=== PATIENT | female | born 1940 | race Caucasian/White ===

== ENCOUNTER 2017-03-22 16:14 | Emergency (ER) | payer MEDICARE, BC ==
[2017-03-22 18:03] VITALS: BP 149/88
== END 2017-03-22 18:26 | disposition left against medical advice (07) ==
LOC: DL.ED 16:14
DX: Z53.21 Procedure and treatment not carried out due to patient leaving prior to being seen by health care provider (principal)

== ENCOUNTER 2017-03-23 10:21 | Emergency (ER) | payer MEDICARE, BC ==
[2017-03-23] MEDS ORDERED: Sodium Chloride 0.9% 10 ML Syringe FLUSH PRN (12:23)
[2017-03-23] MEDS ORDERED: Sodium Chloride 0.9% 1,000 ML IV ONE (12:58)
[2017-03-23 13:10] LABS: ANION GAP 17.5; CHLORIDE,CL 98 mmol/L (101-111); SODIUM,NA 138 mmol/L (135-145)
[2017-03-23 13:19] VITALS: BP 128/70
--- NOTE | 2017-03-23 13:24 | EDM.PDOC ---
ED HPI GENERAL MEDICAL PROBLEM - General Chief Complaint: Gastrointestinal Problem Stated Complaint: THROWING UP FLU Time Seen by Provider: 03/23/17 12:15 Source of Information: Reports: Patient, RN, RN Notes Reviewed History Limitations: Reports: No Limitations - History of Present Illness INITIAL COMMENTS - FREE TEXT/NARRATIVE: Patient presents to ER with complaint of nausea, vomiting and diarrhea which began 2 weeks ago. She denies any pain, fever or chills.She has decreased ambition and appetite. She has no pain, fever or chills. Duration: Getting Worse Location: Reports: Abdomen Quality: Reports: Ache Severity: Moderate Improves with: Reports: None Worsens with: Reports: None Associated Symptoms: Reports: No Other Symptoms - Related Data Allergies Allergy/AdvReac Type Severity Reaction Status Date / Time amlodipine Allergy Cough Verified 03/23/17 10:56 celecoxib Allergy Cannot Verified 03/23/17 10:56 Remember Penicillins Allergy Cannot Verified 03/23/17 10:56 Remember Gsirssu-Six-Eqa Reductase Allergy Cannot Verified 03/23/17 10:56 Inhibitor Remember Sulfa (Sulfonamide Allergy Vomiting Verified 03/23/17 10:56 Antibiotics) Home Meds: Home Meds Aspirin [Halfprin] 81 mg PO DAILY 09/17/15 [History] Cholecalciferol (Vitamin D3) [Vitamin D] 5,000 units PO DAILY 09/17/15 [History] ClonazePAM [KlonoPIN] 0.5 mg PO DAILY 09/17/15 [History] DULoxetine [Cymbalta] 120 mg PO DAILY 09/17/15 [History] Fluticasone Propionate [Flonase] 1 spray NASBOTH DAILY 09/17/15 [History] Furosemide [Lasix] 20 mg PO DAILY 09/17/15 [History] Insulin Aspart [Novolog Flexpen] 6 - 10 units SUBCUT TID 09/17/15 [History] Insulin Detemir [Levemir] 50 mg PO DAILY 09/17/15 [History] LORazepam 1 mg PO Q6H PRN 09/17/15 [History] Liraglutide [Victoza 3-Clifton] 18 mg SUBCUT DAILY 09/17/15 [History] Losartan Potassium 100 mg PO DAILY 09/17/15 [History] Oxybutynin [Oxybutynin ER] 5 mg PO DAILY 09/17/15 [History] busPIRone [Buspar] 15 mg PO BID 09/17/15 [History] metFORMIN HCl [Metformin HCl] 1,000 mg PO BID 09/17/15 [History] Past Medical History HEENT History: Reports: Hard of Hearing, Sinusitis, Other (See Below) Other HEENT History: tinnitus Cardiovascular History: Reports: High Cholesterol, Hypertension Gastrointestinal History: Reports: PUD Genitourinary History: Reports: Other (See Below) Other Genitourinary History: irritable bladder [employer] History: Reports: Other (See Below) Other OB/BYN History: post menopausal Musculoskeletal History: Reports: Fibromyalgia, Other (See Below) Other Musculoskeletal History: stress fracture right fibula Psychiatric History: Reports: Anxiety, Depression Endocrine/Metabolic History: Reports: Diabetes, Type II - Past Surgical History GI Surgical History: Reports: Appendectomy, Cholecystectomy Female Surgical History: Reports: Hysterectomy, Other (See Below) (bladder repair.) Social & Family History - Family History Family Medical History: Noncontributory - Tobacco Use Smoking Status *Q: Former Smoker Used Tobacco, but Quit: Yes Month Tobacco Last Used: 02/23/1972 - Recreational Drug Use Recreational Drug Use: No ED ROS GENERAL - Review of Systems Review Of Systems: ROS reveals no pertinent complaints other than HPI. ED EXAM, GI/ABD - Physical Exam Exam: See Below Exam Limited By: No Limitations General Appearance: Alert, WD/WN, No Apparent Distress Eyes: Bilateral: Normal Appearance Ears: Normal External Exam, Normal Canal, Hearing Grossly Normal, Normal TMs Nose: Normal Inspection, Normal Mucosa, No Blood Throat/Mouth: Normal Inspection, Normal Lips, Normal Teeth, Normal Gums, Normal Oropharynx, Normal Voice, No Airway Compromise Head: Atraumatic, Normocephalic Neck: Normal Inspection, Supple, Non-Tender, Full Range of Motion Respiratory/Chest: No Respiratory Distress, Lungs Clear, Normal Breath Sounds, No Accessory Muscle Use, Chest Non-Tender Cardiovascular: Normal Peripheral Pulses, Regular Rate, Rhythm, No Edema, No Gallop, No JVD, No Murmur, No Rub GI/Abdominal Exam: Other (No tenderness or soft.) (Female) Exam: Deferred Rectal (Female) Exam: Deferred Back Exam: Normal Inspection, Full Range of Motion, NT Extremities: Normal Inspection, Normal Range of Motion, Non-Tender, Normal Capillary Refill, No Pedal Edema Neurological: Alert, Oriented, CN II-XII Intact, Normal Cognition, Normal Gait, Normal Reflexes, No Motor/Sensory Deficits Psychiatric: Normal Affect, Normal Mood Skin Exam: Warm, Dry, Intact, Normal Color, No Rash Lymphatic: No Adenopathy Course - Vital Signs Last Recorded V/S: Last Vital Signs Temp 96.7 F 03/23/17 10:50 Pulse 109 H 03/23/17 10:50 Resp 18 03/23/17 10:50 BP 128/70 03/23/17 10:50 Pulse Ox 99 03/23/17 10:50 - Orders/Labs/Meds Orders: Active Orders 24 hr Category Date Time Status Peripheral IV Care [RC] . DIRECTED Care 03/23/17 12:24 Active Peripheral IV Insertion Adult [OM.PC] Stat Oth 03/23/17 12:23 Ordered Labs: Laboratory Tests 03/23/17 03/23/17 Range/Units 12:41 12:41 WBC 12.4 H (5.0-10.0) 10^3/uL RBC 4.95 (4.2-5.4) 10^6/uL Hgb 14.0 (12.0-16.0) g/dL Hct 42.2 (37.0-47.0) % MCV 85.3 (80-100) fL MCH 28.3 (27.0-34.0) pg MCHC 33.2 (33.0-35.0) g/dL Plt Count 307 (150-450) 10^3/uL Neut % (Auto) 68.3 (42.2-75.2) % Lymph % (Auto) 24.7 (20.5-50.1) % [place] % (Auto) 5.9 (2-8) % Eos % (Auto) 0.6 L (1.0-3.0) % Baso % (Auto) 0.5 (0.0-1.0) % Sodium 138 (135-145) mmol/L Potassium 3.5 L (3.6-5.0) mmol/L Chloride 98 L (101-111) mmol/L Carbon Dioxide 26.0 (21.0-31.0) mmol/L Anion Gap 17.5 BUN 18 (7-18) mg/dL Creatinine 1.0 (0.6-1.3) mg/dL Est Cr Clr Drug Dosing TNP Estimated GFR (MDRD) 54 BUN/Creatinine Ratio 18.00 Glucose 166 H (74-105) mg/dL Calcium 9.6 (8.4-10.2) mg/dl Total Bilirubin 1.3 H (0.2-1.0) mg/dL AST 31 (10-42) IU/L ALT 23 (10-60) IU/L Alkaline Phosphatase 61 (42-121) IU/L Total Protein 7.3 (6.7-8.2) g/dl Albumin 4.1 (3.2-5.5) g/dl Globulin 3.2 Albumin/Globulin Ratio 1.28 Meds: Medications Discontinued Medications Generic Name Dose Route Start Last Admin Trade Name Freq PRN Reason Stop Dose Admin Sodium Chloride 1,000 mls @ 999 mls/hr 03/23/17 12:58 03/23/17 12:59 Normal Saline IV 03/23/17 13:58 999 mls/hr .BOLUS ONE Administration Sodium Chloride 10 ml 03/23/17 12:23 Saline Flush FLUSH ASDIRECTED PRN Keep Vein Open Departure - Departure Time of Disposition: 13:22 Disposition: Home, Self-Care 01 Condition: Fair Clinical Impression: Gastroenteritis - Discharge Information Instructions: Viral Gastroenteritis, Adult, [id number], Nausea and Vomiting, Adult, [id number], Diarrhea, Adult, [id number] Referrals: Daniela Lan [employer] [Primary Care Provider] - Forms: ED Department Discharge Additional Instructions: RX: Zofran Drink plenty of fluids Use Imodium for diarrhea Follow up in the clinic as necessary - My Orders Last 24 Hours: My Active Orders 03/23/17 12:23 Peripheral IV Insertion Adult [OM.PC] Stat 03/23/17 12:24 Peripheral IV Care [RC] . DIRECTED - Assessment/Plan Last 24 Hours: My Active Orders 03/23/17 12:23 Peripheral IV Insertion Adult [OM.PC] Stat 03/23/17 12:24 Peripheral IV Care [RC] . DIRECTED
== END 2017-03-23 14:13 | disposition home or self-care (01) ==
LOC: DL.ED 10:21
DX: K52.9 Noninfective gastroenteritis and colitis, unspecified (principal); I10 Essential (primary) hypertension; E78.00 Pure hypercholesterolemia, unspecified; F32.9 Major depressive disorder, single episode, unspecified; E11.9 Type 2 diabetes mellitus without complications; Z87.891 Personal history of nicotine dependence; Z79.4 Long term (current) use of insulin; Z79.82 Long term (current) use of aspirin; Z79.899 Other long term (current) drug therapy; Z88.0 Allergy status to penicillin; Z88.2 Allergy status to sulfonamides; Z88.8 Allergy status to other drugs, medicaments and biological substances
CPT/HCPCS: 36415; 80053; 85025; 96360; 99284; J7030

== ENCOUNTER → 2018-05-28 | Outpatient (CLI) | payer MEDICARE, BC | LOC: DL.US 09:34 | PROVIDERS: ATTEND Physician Assistant Medical | DX: G45.1 Carotid artery syndrome (hemispheric) (principal); I65.22 Occlusion and stenosis of left carotid artery; E04.2 Nontoxic multinodular goiter; I70.0 Atherosclerosis of aorta | CPT/HCPCS: 93880 ==

== ENCOUNTER → 2018-08-12 | Outpatient (CLI) | payer MEDICARE, BC | LOC: DL.CLIN 09:30 | CPT/HCPCS: 99213 ==